=== PATIENT | male | born 1930 | race Caucasian/White ===

== ENCOUNTER 2017-05-11 07:28 | Emergency (ER) | payer MEDICARE ==
[2017-05-11] MEDS ORDERED: Albuterol/Ipratropium 3.0-0.5 MG/3 ML Neb Soln NEB ONE (09:22)
--- NOTE | 2017-05-11 10:32 | EDM.PDOC ---
ED HPI GENERAL MEDICAL PROBLEM - General Chief Complaint: Respiratory Problem Stated Complaint: BREATHING DIFFICULTY Time Seen by Provider: 05/11/17 08:34 Source of Information: Reports: Patient, Family, RN Notes Reviewed History Limitations: Reports: No Limitations - History of Present Illness INITIAL COMMENTS - FREE TEXT/NARRATIVE: 87-year-old gentleman presents emergency department day complaint of shortness of breath, he states been getting progressively more short of breath over the last week or so with the last 24 hours being the most significant. He does have cough and sputum production has not had any fevers his primary care did have him on Lasix which he stopped about a week ago - Related Data Allergies Allergy/AdvReac Type Severity Reaction Status Date / Time Sulfa (Sulfonamide Allergy Other Verified 05/11/17 08:16 Antibiotics) Home Meds: Home Meds Atenolol 25 mg PO DAILY 05/11/17 [History] Gabapentin [Neurontin] 300 mg PO TID 05/11/17 [History] Pravastatin Sodium [Pravachol] 40 mg PO DAILY 05/11/17 [History] Sertraline [Zoloft] 20 mg PO DAILY 05/11/17 [History] Warfarin [Coumadin] 2.5 mg PO DAILY 05/11/17 [History] Warfarin [Coumadin] 5 mg PO DAILY 05/11/17 [History] guaiFENesin [Mucinex] 1 tab PO ASDIRECTED PRN 05/11/17 [History] Past Medical History HEENT History: Reports: Cataract Cardiovascular History: Reports: Afib, Hypertension, Other (See Below) Other Cardiovascular History: a fib Respiratory History: Reports: Other (See Below) Other Respiratory History: selling in feet ? chf Genitourinary History: Reports: Urinary Incontinence Musculoskeletal History: Reports: Other (See Below) Neurological History: Reports: CVA, Neuropathy, Peripheral Psychiatric History: Reports: Anxiety, Depression Endocrine/Metabolic History: Reports: Other (See Below) Other Endocrine/Metabolic History: pre diabetes Social & Family History - Tobacco Use Smoking Status *Q: Former Smoker Used Tobacco, but Quit: Yes Month Tobacco Last Used: may - Caffeine Use Caffeine Use: Reports: Coffee - Alcohol Use Days Per Week of Alcohol Use: 7 Number of Drinks Per Day: 1 Total Drinks Per Week: 7 - Recreational Drug Use Recreational Drug Use: No ED ROS GENERAL - Review of Systems Review Of Systems: See Below Constitutional: Denies: Fever, Chills HEENT: Reports: No Symptoms Respiratory: Reports: Shortness of Breath, Cough, Sputum Cardiovascular: Reports: Dyspnea on Exertion, Edema. Denies: Chest Pain GI/Abdominal: Reports: No Symptoms : Reports: No Symptoms Musculoskeletal: Reports: No Symptoms Skin: Reports: No Symptoms ED EXAM, GENERAL - Physical Exam Exam: See Below Free Text/Narrative:: General: Male, not in any distress, alert and oriented x3 HEENT: head is atraumatic normocephalic, eyes pupils equal round reactive to light, sclera clear no conjunctivitis appreciated. Ears tympanic membranes clear and sánchez landmarks and light reflex are present bilaterally canals are clear. Nose no septal deviation, nares are clear, no blood present. Mouth mucosa is moist and pink no erythema or exudate noted in soft palate, tongue is midline uvula is midline, dentition is intact. Neck: Supple no thyromegaly no tracheal deviation. Nodes: Cervical nodes subclavicular nodes nontender no palpable lymphadenopathy noted. Lungs: Breath sounds are distant on appreciate any adventitious noises CV: Irregularly irregular rate and rhythm S1 and S2 appreciated no murmurs rubs or gallops noted. Abdomen: Soft, nontender, no palpable masses or organomegaly appreciated, no distention no guarding bowel sounds are present, . Neuro: Cranial nerves II through XII grossly intact Skin: Warm and dry, intact Extremities: +1 pitting edema bilaterally Course - Vital Signs Last Recorded V/S: Last Vital Signs Temp 98 F 05/11/17 09:12 Pulse 72 05/11/17 09:58 Resp 18 05/11/17 09:58 BP 134/63 05/11/17 11:07 Pulse Ox 98 05/11/17 09:58 - Orders/Labs/Meds Orders: Active Orders 24 hr Category Date Time Status Cardiac Monitoring [RC] .As Directed Care 05/11/17 09:21 Active EKG Documentation Completion [RC] ASDIRECTED Care 05/11/17 09:21 Active Peripheral IV Care [RC] . DIRECTED Care 05/11/17 10:45 Active RT Aerosol Therapy [RC] ASDIRECTED Care 05/11/17 09:22 Active Chest 2V [CR] Stat Exams 05/11/17 09:21 Taken Sodium Chloride 0.9% [Saline Flush] Med 05/11/17 10:44 Active 10 ml FLUSH ASDIRECTED PRN Peripheral IV Insertion Adult [OM.PC] Urgent Oth 05/11/17 10:44 Ordered EKG 12 Lead [EK] Stat Ther 05/11/17 09:21 Ordered Medication Orders Sodium Chloride (Saline Flush) 10 ml FLUSH ASDIRECTED PRN PRN Reason: Keep Vein Open Last Admin: 05/11/17 11:20 Dose: 10 ml Labs: Laboratory Tests 05/11/17 05/11/17 05/11/17 Range/Units 09:28 09:28 09:28 WBC 6.9 (4.5-11.0) K/uL RBC 4.46 (4.30-5.90) M/uL Hgb 13.7 (12.0-15.0) g/dL Hct 42.4 (40.0-54.0) % MCV 95 (80-98) fL MCH 31 (27-31) pg MCHC 32 (32-36) % Plt Count 149 L (150-400) K/uL Neut % (Auto) 68 H (36-66) % Lymph % (Auto) 19 L (24-44) % Tyrrell % (Auto) 12 H (2-6) % Eos % (Auto) 1 L (2-4) % Baso % (Auto) 0 (0-1) % PT (9.5-12.0) sec INR (0.80-1.20) Sodium 138 L (140-148) mmol/L Potassium 4.6 (3.6-5.2) mmol/L Chloride 104 (100-108) mmol/L Carbon Dioxide 27 (21-32) mmol/L Anion Gap 11.6 (5.0-14.0) mmol/L BUN 21 H (7-18) mg/dL Creatinine 1.0 (0.8-1.3) mg/dL Est Cr Clr Drug Dosing 52.72 mL/min Estimated GFR (MDRD) > 60 (>60) Glucose 93 (74-106) mg/dL Lactic Acid 0.8 (0.4-2.0) mmol/L Calcium 8.3 L (8.5-10.1) mg/dL Total Bilirubin 0.8 (0.2-1.0) mg/dL AST 17 (15-37) U/L ALT 15 (12-78) U/L Alkaline Phosphatase 88 (46-116) U/L Troponin I < 0.017 (0.000-0.056) ng/mL [id number] Pept 2547 H (5-450) pg/mL Total Protein 6.8 (6.4-8.2) g/dL Albumin 3.2 L (3.4-5.0) g/dL Globulin 3.6 H (2.3-3.5) g/dL Albumin/Globulin Ratio 0.9 L (1.2-2.2) 05/11/17 Range/Units 10:30 WBC (4.5-11.0) K/uL RBC (4.30-5.90) M/uL Hgb (12.0-15.0) g/dL Hct (40.0-54.0) % MCV (80-98) fL MCH (27-31) pg MCHC (32-36) % Plt Count (150-400) K/uL Neut % (Auto) (36-66) % Lymph % (Auto) (24-44) % Tyrrell % (Auto) (2-6) % Eos % (Auto) (2-4) % Baso % (Auto) (0-1) % PT 22.1 H (9.5-12.0) sec INR 2.01 H (0.80-1.20) Sodium (140-148) mmol/L Potassium (3.6-5.2) mmol/L Chloride (100-108) mmol/L Carbon Dioxide (21-32) mmol/L Anion Gap (5.0-14.0) mmol/L BUN (7-18) mg/dL Creatinine (0.8-1.3) mg/dL Est Cr Clr Drug Dosing mL/min Estimated GFR (MDRD) (>60) Glucose (74-106) mg/dL Lactic Acid (0.4-2.0) mmol/L Calcium (8.5-10.1) mg/dL Total Bilirubin (0.2-1.0) mg/dL AST (15-37) U/L ALT (12-78) U/L Alkaline Phosphatase (46-116) U/L Troponin I (0.000-0.056) ng/mL [id number] Pept (5-450) pg/mL Total Protein (6.4-8.2) g/dL Albumin (3.4-5.0) g/dL Globulin (2.3-3.5) g/dL Albumin/Globulin Ratio (1.2-2.2) Meds: Medications Generic Name Dose Route Start Last Admin Trade Name Freq PRN Reason Stop Dose Admin Sodium Chloride 10 ml 05/11/17 10:44 05/11/17 11:20 Saline Flush FLUSH 10 ml ASDIRECTED PRN Administration Keep Vein Open Discontinued Medications Generic Name Dose Route Start Last Admin Trade Name Freq PRN Reason Stop Dose Admin Albuterol/Ipratropium 3 ml 05/11/17 09:22 05/11/17 09:35 Duoneb 3.0-0.5 Mg/3 Ml NEB 05/11/17 09:23 3 ml ONETIME ONE Administration Furosemide 80 mg 05/11/17 10:44 05/11/17 11:07 Lasix IVPUSH 05/11/17 10:45 80 mg ONETIME ONE Administration Departure - Departure Time of Disposition: 12:13 Disposition: Home, Self-Care 01 Condition: Good Clinical Impression: CHF (congestive heart failure) Qualifiers: Congestive heart failure type: unspecified congestive heart failure type Congestive heart failure chronicity: acute on chronic Qualified Code(s): I50.9 - Heart failure, unspecified - Discharge Information Forms: ED Department Discharge Additional Instructions: Please take full course of Lasix in combination with potassium, please follow- up with your primary care provider upon return home - My Orders Last 24 Hours: My Active Orders 05/11/17 09:21 Cardiac Monitoring [RC] .As Directed EKG Documentation Completion [RC] ASDIRECTED Chest 2V [CR] Stat EKG 12 Lead [EK] Stat 05/11/17 09:22 RT Aerosol Therapy [RC] ASDIRECTED 05/11/17 10:44 Sodium Chloride 0.9% [Saline Flush] 10 ml FLUSH ASDIRECTED PRN Peripheral IV Insertion Adult [OM.PC] Urgent 05/11/17 10:45 Peripheral IV Care [RC] . DIRECTED - Assessment/Plan Last 24 Hours: My Active Orders 05/11/17 09:21 Cardiac Monitoring [RC] .As Directed EKG Documentation Completion [RC] ASDIRECTED Chest 2V [CR] Stat EKG 12 Lead [EK] Stat 05/11/17 09:22 RT Aerosol Therapy [RC] ASDIRECTED 05/11/17 10:44 Sodium Chloride 0.9% [Saline Flush] 10 ml FLUSH ASDIRECTED PRN Peripheral IV Insertion Adult [OM.PC] Urgent 05/11/17 10:45 Peripheral IV Care [RC] . DIRECTED Plan: Assessment Acuity = acute Site and laterality = exacerbation of CHF complicated patient with known history of atrial fibrillation on chronic anticoagulation Etiology = probably secondary to stoppage of Lasix Manifestations = dyspnea now improved Location of injury = Home Lab values = CBC within normal limits sodium low at 138 consistent hyponatremia INR stable at and therapeutic at 2.1 BNP elevated at 2547 consistent fluid overload type pattern albumin low at 2.2 consistent hypoalbuminemia,EKG shows atrial fibrillation Plan He had good improvement of his dyspnea with 80 mg Lasix IV plan is to discharge home Lasix 20 mg twice a day in combination with potassium replacement he will follow-up with his primary care provider upon return home Patient was in agreement with the plan all questions were answered, they were instructed to return to the emergency department or call for worsening symptoms. This note was dictated using [employer] voice recognition software please call with any questions.
[2017-05-11] MEDS ORDERED: Furosemide 40 MG/4 ML VIAL IVPUSH ONE (10:44)
[2017-05-11] MEDS ORDERED: Sodium Chloride 0.9% 10 ML Syringe FLUSH PRN (10:44)
[2017-05-11 11:10] VITALS: BP 134/63
--- NOTE | 2017-05-13 09:22 | CR ---
Heart size within normal limits. Mild interstitial thickening to indicate vascular congestion. Trace bilateral pleural effusions.
== END 2017-05-11 12:38 | disposition home or self-care (01) ==
LOC: JP.ED 07:28
DX: I50.9 Heart failure, unspecified (principal); I48.91 Unspecified atrial fibrillation; I10 Essential (primary) hypertension; F41.9 Anxiety disorder, unspecified; F32.9 Major depressive disorder, single episode, unspecified; Z87.891 Personal history of nicotine dependence; Z79.01 Long term (current) use of anticoagulants; Z79.899 Other long term (current) drug therapy; Z88.2 Allergy status to sulfonamides
CPT/HCPCS: 36415; 71020; 80053; 83605; 83880; 84484; 85025; 85610; 93005; 94640; 96374; 99285; J1940; J7050; J7620; 93010; 99284